=== PATIENT | female | born 1980 | race Caucasian/White ===

== ENCOUNTER → 2018-08-04 | Outpatient (CLI) | payer OTHER ==
--- NOTE | 2018-08-04 10:04 | RADIOLOGY REPORT (SQ) ---
EXAM DESCRIPTION: CT ABD/PELVIS WITH IV ORAL COMPLETED DATE/TIME: 08/04/2018 8:46 am REASON FOR STUDY: PELVIC AND PERINEAL PAIN,ABD PAIN R10.2 PELVIC AND PERINEAL PAIN R10.9 UNSPECIFI ED ABDOMINAL PAIN. Right lower quadrant pain. COMPARISON: None. TECHNIQUE: CT scan of the abdomen and pelvis performed using helical scanning technique with dynamic intravenous contrast injection. No oral contrast. Images reviewed with lung, soft tissue, and bone windows. Reconstructed coronal and sagittal MPR images reviewed. Delayed images for evaluation of the urinary system also acquired. All images stored on PACS. All CT scanners at this facility use dose modulation, iterative reconstruction, and/or weight based d osing when appropriate to reduce radiation dose to as low as reasonably achievable (ALARA). [facility]: Dose Right [facility]: CareDose [facility]: Dose Right [facility]: Teradose 4D [facility]: Enerpulse CONTRAST TYPE AND DOSE: contrast/concentration: Isovue 350.00 mg/ml; Total Contrast Delivered: 70.0 ml; Total Saline Delivered: 65.0 ml RENAL FUNCTION: Creatinine: 0.8. RADIATION DOSE: CT Rad equipment meets quality standard of care and radiation dose reduction techniq ues were employed. CTDIvol: 3.9 - 4.5 mGy. DLP: 429 mGy-cm.. LIMITATIONS: None. FINDINGS: LOWER CHEST: Chronic subpleural scarring and pleural thickening. . LIVER: There is evidence of a prominent mass left lobe of the liver with peripheral nodular enhanceme nt demonstrating near isodensity to the liver on delayed scans most consistent with hemangioma. This mass measures 4.4(T)x 3.9(AP)X 3.8(H)cm. SPLEEN: Normal. PANCREAS: No masses. No significant calcifications. No adjacent inflammation or peripancreatic fluid collections. Pancreatic duct not dilated. GALLBLADDER: Normal. ADRENAL GLANDS: Normal. RIGHT KIDNEY AND URETER: Normal. No renal or ureteral calculi LEFT KIDNEY AND URETER: Normal. No renal or ureteral calculus. AORTA AND VESSELS: No aneurysm. No dissection. Renal arteries, SMA, celiac without stenosis. RETROPERITONEUM: No retroperitoneal adenopathy, hemorrhage or masses. BOWEL AND PERITONEAL CAVITY: No masses or inflammatory changes. No free fluid or peritoneal masses. APPENDIX: Normal. PELVIS: Urinary bladder: No abnormality. Uterus: IUD in place. ABDOMINAL WALL: Normal. BONES: Normal. . IMPRESSION: 1. Evidence of prominent cavernous hemangioma left lobe of liver measuring 4.4 X 3.9 X 3.8 CM. TECHNICAL DOCUMENTATION: JOB ID: [id number] Quality ID # [id number]: Final reports with documentation of one or more dose reduction techniques (e.g., Au tomated exposure control, adjustment of the mA and/or kV according to patient size, use of iterative reconstruction technique) 2010 [employer]- All Rights Reserved Reading location - IP/workstation name: [email or web address]
== END ==
LOC: RAD 08:10
PROVIDERS: ATTEND Physician Assistant
DX: D18.03 Hemangioma of intra-abdominal structures (principal); R10.2 Pelvic and perineal pain; R10.9 Unspecified abdominal pain
CPT/HCPCS: 74177; 82565